=== PATIENT | male | born 1965 | race Two or more races ===

== ENCOUNTER 2017-01-23 06:33 | Inpatient (IN) | payer MEDICARE, MEDICAID ==
[~2017-01-23] VITALS: Ht 180.3 cm; Wt 93.0 kg
[2017-01-23] MEDS ORDERED: ONDANSETRON HCL/PF 4 MG/2 ML VIAL IVP PRN (07:30)
[2017-01-23] MEDS ORDERED: Z GUARD REMEDY 2 OZ OINT TP PRN (07:30)
[2017-01-23] MEDS ORDERED: ACETAMINOPHEN 325 MG TABLET PO PRN (07:30)
[2017-01-23] MEDS ORDERED: OMEP20CA10 PO (10:21)
[2017-01-23] MEDS ORDERED: BUPR300T52 PO (10:21)
[2017-01-23] MEDS ORDERED: ARIP15TA2 PO (10:21)
[2017-01-23] MEDS ORDERED: BACL10TA PO (10:21)
[2017-01-23] MEDS ORDERED: LORA1TAB PO (10:21)
[2017-01-23] MEDS ORDERED: CARV3.12 PO (10:21)
[2017-01-23] MEDS ORDERED: TRAZ-147 PO (10:21)
[2017-01-23] MEDS ORDERED: BUSP10TA35 PO (10:21)
[2017-01-23] MEDS ORDERED: SIMV40TA2 PO (10:21)
[2017-01-23] MEDS ORDERED: SUMA100T PO (10:21)
--- NOTE | 2017-01-23 11:00 | NUR ---
RN ADMITTING NOTES PATIENT ARRIVED TI UNIT VIA AMBULANCE. ADMITTED TO ROOM 314-2. PATIENT IS ALERT AND ORIENTED TO NAME, PLACE AND TIME. NO SIGNS AND SYMPTOMS OF DISTRESS. VITAL SIGNS ARE STABLE (BP 136/86, HR 67, O2 95%, R 20). BED IN LOW POSITION, LOCKED AND TWO SIDE RAILS ARE UP. WILL CONTINUE TO ASSESS AND MONITOR PATIENT CONDITION.
[2017-01-23 12:00] VITALS: BP 119/82
[2017-01-23 12:07] LABS: CALCIUM, SERUM 9.1 mg/dL (8.5-10.1); POTASSIUM 3.7 mmol/L (3.5-5.1)
--- NOTE | 2017-01-23 12:29 | NUR ---
MARRY BEAVER FOR ADMITTING ORDERS
[2017-01-23] MEDS ORDERED: IV SET PRIMARY PUMP SET 1 EA INFUS.SET MC ONE (12:47)
[2017-01-23] MEDS: IV NS 0.9% 1,000 ML IV PRN (12:56)
[2017-01-23] MEDS ORDERED: LORAZEPAM 1 MG TABLET PO PRN (13:00)
[2017-01-23] MEDS ORDERED: BACLOFEN (10 MG) 10 MG TABLET PO PRN (13:00)
[2017-01-23] MEDS ORDERED: TRAZODONE 50 MG TABLET PO PRN (13:00)
[2017-01-23 16:08] VITALS: BP 118/70
[2017-01-23] MEDS ORDERED: CARVEDILOL 3.125 MG TABLET PO SCH (17:00)
[2017-01-23] MEDS: busPIRone 5 MG TABLET PO SCH (17:28)
--- NOTE | 2017-01-23 18:36 | NUR ---
RN CLOSING NOTES PATIENT IS IN BED, ALERT AND ORIENTED TO NAME, PLACE AND TIME. NO SIGNS AND SYMPTOMS OF DISTRESS. PAIN LEVEL IS TOLERABLE, PATIENT HAS NORCO PRN IF NEEDED. EEG COMPLETED, PER TECH NO SIGNS OF SEIZURES. BED IN LOW POSITION, LOCKED AND TWO SIDE RAILS ARE UP. PATIENT KEPT CLEAN AND SAFE. WILL ENDORSE TO SECURITY ROVER NURSE.
--- NOTE | 2017-01-23 19:35 | NUR ---
RN OPENING NOTES RECEIVED REPORT FROM DAYSHIFT RNCHERI. FOUND Pt AWAKE, RESTING IN BED. Pt IS A/OX3, VERBAL, ABLE TO MAKE NEEDS KNOWN. NO S/S OF ACUTE DISTRESS OR SOB NOTED. C/O OF PAIN ON HIS RT LEG, WILL ADMINISTER PAIN MED WHEN DUE. ON TELE SR 81. IV ACCESS ON L WRIST #20G, IVF NS @75ML/HR. SAFETY MEASURES IN PLACE. BED LOW, LOCKED, HOB ELEVATED, SIDE RAILS UP, CALL LIGHT AND BEDSIDE TABLE WITHIN REACH. WILL CONTINUE TO MONITOR Pt THROUGHOUT THE NIGHT FOR SAFETY.
[2017-01-23] MEDS: HYDROCODONE/APAP 10/325MG 1 EA TABLET PO PRN (20:33)
[2017-01-23] MEDS: ENOXAPARIN SODIUM 40 MG/0.4 ML DISP.SYRIN SQ SCH (20:34)
[2017-01-23 22:00] VITALS: BP 115/69
[2017-01-24] VITALS: BP 108/71
[2017-01-24] MEDS: IV NS 0.9% 1,000 ML IV PRN ×2 (01:12→17:26)
[2017-01-24] MEDS ORDERED: SUMATRIPTAN SUCCINATE 100 MG TABLET ONE (02:55)
[2017-01-24] MEDS: SUMATRIPTAN SUCCINATE 100 MG TABLET PO PRN ×2 (03:06→21:16)
[2017-01-24 04:00] VITALS: BP 131/83
[2017-01-24] MEDS: PANTOPRAZOLE 40 MG TABLET.DR PO SCH ×2 (06:41→08:39)
[2017-01-24 06:43] LABS: BASOPHILS % (AUTO) 0.8 % (0.0-2.0); EOSINOPHILS # (AUTO) 0.2 /CMM (0.0-0.7); EOSINOPHILS % (AUTO) 2.8 % (0.0-6.0); HEMATOCRIT 42 % (39-51); HEMOGLOBIN 14.5 g/dL (13.5-17.5); LYMPHOCYTES # (AUTO) 1.6 /CMM (0.8-4.8); LYMPHOCYTES % (AUTO) 26.6 % (20.0-44.0); MEAN CORPUSCULAR HEMOGLOBIN 32 PG (26.0-33.0); MEAN CORPUSCULAR HGB CONC 35 g/dl (31.0-36.0); MEAN CORPUSCULAR VOLUME 93 fL (80-96); MONOCYTES # (AUTO) 0.4 /CMM (0.1-1.30); MONOCYTES % (AUTO) 6.8 % (2.0-12.0); NEUTROPHILS # (AUTO) 3.7 /CMM (1.8-8.9); PLATELET COUNT (AUTO) 181 /CMM (150-450); RDW COEFFICIENT OF VARIATION 13.3 (11.5-15.0); RED BLOOD CELL COUNT(AUTO) 4.52 MIL/uL (4.5-6.0); WHITE BLOOD COUNT (AUTO) 5.9 K/uL (4.3-11.0)
--- NOTE | 2017-01-24 06:50 | NUR ---
RN CLOSING NOTES NO SIGNIFICANT CHANGES IN Pt's CONDITION DURING THE NIGHT. NO S/S OF ACUTE DISTRESS OR SOB NOTED. ALL NEEDS MET AND ATTENDED TO. SAFETY MEASURES IN PLACE. WILL ENDORSE TO DAYSHIFT RN FOR Pt's JHOAN. TELE READING SR 70's
[2017-01-24 07:09] LABS: ALBUMIN 3.8 g/dL (3.4-5.0); BILIRUBIN,TOTAL 0.9 mg/dL (0.2-1.0); CALCIUM, SERUM 8.7 mg/dL (8.5-10.1); CREATININE 0.9 mg/dL (0.6-1.3); PHOSPHORUS 3.5 mg/dL (2.5-4.9); POTASSIUM 4.2 mmol/L (3.5-5.1); TOTAL PROTEIN, SERUM 6.7 g/dL (6.4-8.2)
[2017-01-24 07:11] LABS: THYROID STIMULATING HORMONE 1.293 uIU/mL (0.358-3.74)
--- NOTE | 2017-01-24 07:25 | NUR ---
RN NOTES RECEIVED PATIENT AWAKE AND ORIENTEDX4 , ABLE TO MAKE NEEDS KNOWN. RESPIRATIONS EVEN AND UNLABORED, DENIES ANY PAIN OR DISCOMFORT AT THIS TIME. IV ACCESS PATENT AND INTACT NO REDNESS OR INFILTRATION NOTED. KEPT CLEAN DRY AND COMFORTABLE, CALL LIGHT WITHIN EASY REACH, WILL CONTINUE TO MONITOR
[2017-01-24 08:00] VITALS: BP 131/88
[2017-01-24] MEDS: SIMVASTATIN 40 MG TABLET PO SCH (08:39)
[2017-01-24] MEDS: ARIPIPRAZOLE 5 MG TABLET PO SCH (08:40)
[2017-01-24] MEDS: busPIRone 5 MG TABLET PO SCH ×2 (08:40→16:15)
[2017-01-24] MEDS: HYDROCODONE/APAP 10/325MG 1 EA TABLET PO PRN ×3 (08:45→17:27)
[2017-01-24] MEDS ORDERED: BUPROPION XL 150 MG TAB.ER.24 PO SCH (09:00)
[2017-01-24] MEDS ORDERED: IV NS 0.9% 250 ML IV ONE (10:25)
[2017-01-24] MEDS ORDERED: CT SWABBABLE VALVE TRANS SET 1 EA INFUS.SET MC ONE (10:25)
[2017-01-24] MEDS ORDERED: IOHEXOL-300 100 ML VIAL IV ONE (10:25)
[2017-01-24 16:00] VITALS: BP 118/75
--- NOTE | 2017-01-24 18:57 | NUR ---
RN NOTES PATIENT AWAKE AND ORIENTEDX4 , ABLE TO MAKE NEEDS KNOWN. RESPIRATIONS EVEN AND UNLABORED, DENIES ANY PAIN OR DISCOMFORT AT THIS TIME. IV ACCESS PATENT AND INTACT NO REDNESS OR INFILTRATION NOTED. KEPT CLEAN DRY AND COMFORTABLE, CALL LIGHT WITHIN EASY REACH, WILL CONTINUE TO MONITOR AND ENDORSE TO NEXT SHIFT FOR CONTINUITY OF CARE
--- NOTE | 2017-01-24 19:35 | NUR ---
MS RN INITIAL NOTES RECEIVED REPORT FROM DAY SHIFT, PT IS IN BED RELAXING, NO SIGNS OF DISTRESS OR SOB. A/O X3 ABLE TO COMMUNICATE HIS NEEDS. IV ACCESS ON LEFT WRIST WITH NS @ 75 ML/HR, IV INTACT AND DENIES ANY PAIN. BED IS IN LOW AND LOCKED POSITION, CALL LIGHT WITHIN REACH. WILL CONTINUE TO MONITOR PT
[2017-01-24 20:00] VITALS: BP 120/71
[2017-01-24] MEDS: CARVEDILOL 3.125 MG TABLET PO SCH (20:47)
[2017-01-24] MEDS: ENOXAPARIN SODIUM 40 MG/0.4 ML DISP.SYRIN SQ SCH (20:56)
--- NOTE | 2017-01-24 20:57 | NUR ---
lovenox lovenox was held due to pts xrays still needing to be evaluated by Dr. Tyson Pugh and the possibility of surgery.
[2017-01-24 22:00] VITALS: BP 120/71
--- NOTE | 2017-01-25 07:07 | NUR ---
RN CLOSING NOTES NO SIGNIFICANT CHANGES IN Pt's CONDITION DURING THE NIGHT. NO S/S OF ACUTE DISTRESS OR SOB NOTED. LOVENOX WAS HELD, STILL AWAITING DR. STAPLETON TO SEE IF SURGERY IS NEEDED. ALL NEEDS MET AND ATTENDED TO. SAFETY MEASURES IN PLACE. WILL ENDORSE TO DAYSHIFT
[2017-01-25 07:19] LABS: BASOPHILS % (AUTO) 0.7 % (0.0-2.0); EOSINOPHILS # (AUTO) 0.2 /CMM (0.0-0.7); EOSINOPHILS % (AUTO) 3.9 % (0.0-6.0); HEMATOCRIT 40 % (39-51); LYMPHOCYTES # (AUTO) 1.6 /CMM (0.8-4.8); LYMPHOCYTES % (AUTO) 31.2 % (20.0-44.0); MEAN CORPUSCULAR HEMOGLOBIN 33 PG (26.0-33.0); MEAN CORPUSCULAR HGB CONC 35 g/dl (31.0-36.0); MEAN CORPUSCULAR VOLUME 93 fL (80-96); MONOCYTES # (AUTO) 0.4 /CMM (0.1-1.30); MONOCYTES % (AUTO) 7.4 % (2.0-12.0); NEUTROPHILS # (AUTO) 2.9 /CMM (1.8-8.9); NEUTROPHILS % (AUTO) 56.8 % (43.0-81.0); PLATELET COUNT (AUTO) 180 /CMM (150-450); RDW COEFFICIENT OF VARIATION 12.9 (11.5-15.0); RED BLOOD CELL COUNT(AUTO) 4.31 MIL/uL (4.5-6.0); WHITE BLOOD COUNT (AUTO) 5.1 K/uL (4.3-11.0)
[2017-01-25] MEDS: IV NS 0.9% 1,000 ML IV PRN (07:23)
--- NOTE | 2017-01-25 07:30 | NUR ---
MS RN RECEIVED ON BED, AWAKE,ALERT,ORIENTED X4,NOT IN ANY FORM OF DISTRESS,RESPIRATIONS EVEN AND UNLABORED,NO SOB NOTED. S/P FALL W/ WOUND SUTURED AT LOWER LIP, WOUND AT LEFT LOWER [place] AND FRACTURED RIGHT LOWER FOOT W/ PARTIAL IMMOBILIZER CAST AND DRESSING., DENIES PAIN AT THIS TIME, WILL MONITOR PATIENT'S CONDITION.
[2017-01-25 07:58] LABS: CALCIUM, SERUM 8.9 mg/dL (8.5-10.1); PHOSPHORUS 3.5 mg/dL (2.5-4.9); POTASSIUM 4.2 mmol/L (3.5-5.1)
[2017-01-25 08:00] VITALS: BP 133/74
--- NOTE | 2017-01-25 08:30 | NUR ---
MS GARCIA BREAKFAST SERVED,DUE MEDS GIVEN,TOLERATED WELL.
[2017-01-25] MEDS: busPIRone 5 MG TABLET PO SCH (09:10)
[2017-01-25] MEDS: ARIPIPRAZOLE 5 MG TABLET PO SCH (09:10)
[2017-01-25] MEDS: SIMVASTATIN 40 MG TABLET PO SCH (09:10)
[2017-01-25 09:11] VITALS: BP 133/74
[2017-01-25] MEDS: HYDROCODONE/APAP 10/325MG 1 EA TABLET PO PRN ×2 (09:11→14:00)
[2017-01-25] MEDS: CARVEDILOL 3.125 MG TABLET PO SCH (09:11)
--- NOTE | 2017-01-25 09:30 | NUR ---
MS RN WAS SEEN BY KAYKAY HAHN, STABLE OK TO GO HOME AT THIS TIME.
--- NOTE | 2017-01-25 12:30 | NUR ---
MS RN WAS SEEN BY DR.SAM Daniel/ DEMETRIO TO GO HOME TODAY.
--- NOTE | 2017-01-25 14:45 | NUR ---
MS RN PATIENT WENT HOME VIA TAXI VOUCHER, DISCHARGE INSTRUCTIONS GIVEN AND UNDERSTOOD, WILL HAVE A FOLLOW UP W/ PRIMARY IN ONE TO TWO WEEKS FROM NOW, ALL NEEDS ATTENDED.
--- NOTE | 2017-01-25 15:00 | NUR ---
MS RN PATIENT IS READY FOR DISCHARGE, REFUSED TO OPEN DRESSING FOR PICTURE.
[2017-01-25] MEDS: SUMATRIPTAN SUCCINATE 100 MG TABLET PO PRN (15:38)
== END 2017-01-25 16:48 | disposition home or self-care (01) | DRG 74 ==
LOC: TELE 09:22 → MED 01-24 10:13
PROVIDERS: ADMIT Nurse Practitioner Acute Care; ATTEND Nurse Practitioner Acute Care
DX: G90.8 Other disorders of autonomic nervous system (principal); E44.0 Moderate protein-calorie malnutrition; I10 Essential (primary) hypertension; E66.9 Obesity, unspecified; E78.5 Hyperlipidemia, unspecified; F31.9 Bipolar disorder, unspecified; F41.9 Anxiety disorder, unspecified; G43.909 Migraine, unspecified, not intractable, without status migrainosus; K21.9 Gastro-esophageal reflux disease without esophagitis; G47.00 Insomnia, unspecified; S82.301A Unspecified fracture of lower end of right tibia, initial encounter for closed fracture; S82.491A Other fracture of shaft of right fibula, initial encounter for closed fracture; S92.331A Displaced fracture of third metatarsal bone, right foot, initial encounter for closed fracture; W19.XXXA Unspecified fall, initial encounter; Y93.9 Activity, unspecified; Y92.009 Unspecified place in unspecified non-institutional (private) residence as the place of occurrence of the external cause; Z87.891 Personal history of nicotine dependence; Z68.28 Body mass index [BMI] 28.0-28.9, adult
CPT/HCPCS: 36415; 70470-TC; 73590-TC; 73630-TC; 80048-TC; 80053-TC; 80061-TC; 82533; 83735-TC; 84100-TC; 84443-TC; 84484-TC; 85025-TC; 87081-TC; 93307-TC; 93880-TC; 95819-TC; 97001-TC; J1650; J2405; J7030; J7050; Q9967; Z7610